=== PATIENT | female | born 1935 | race Caucasian/White ===

== ENCOUNTER 2020-09-24 09:03 | Emergency (ER) | payer MEDICARE, OTHER ==
[~2020-09-24 09:03] MED LIST: COLACE100 MG PO; DESYREL50 MG PO; LACTINEX1 EACH PO; MUCINEX600 MG PO; MULTIVITAMINS1 EAC1 PO; NORVASC5 MG PO; OS-CAL500 MG PO; TESSALON PERLE100 MG PO; ULTRAM50 MG PO
[2020-09-24 10:05] LABS: BASOPHIL 0.3 % (0-2); EOSINOPHIL 0.2 % (0-7); HCT 39.9 % (37.0-47.0); HGB 13.5 g/dl (12.5-16.0); LYMPHOCYTE 15.4 % (15-48); MCH 30.6 pg (25.0-31.0); MCHC 33.8 g/dL (32.0-36.0); MCV 90.5 fL (78.0-100.0); MONOCYTE 7.2 % (0-12); MPV 9.5 fL (6.0-9.5); NEUTROPHIL 76.6 % (41-80); NRBC 0; PLT 236 K/uL (150-400); RBC 4.41 M/uL (4.20-5.40); RDW 12.5 % (11.5-14.0); WBC 8.9 K/uL (4.0-10.5)
[2020-09-24 10:18] LABS: INR 1.19 (0.9-1.2); PROTHROMBIN TIME 14.3 SECONDS (11.4-13.6); PTT 28.6 SECONDS (22.2-34.7)
[2020-09-24 10:26] LABS: ALBUMIN 3.8 g/dL (3.4-5.0); BILIRUBIN - TOTAL 0.5 mg/dL (0.2-1.0); CREATININE 0.88 mg/dL (0.51-0.95); GLOBULIN (CALCULATION) 2.8 g/dL; POTASSIUM 3.8 mmol/L (3.5-5.1); TOTAL PROTEIN 6.6 g/dL (6.4-8.2)
[2020-09-24 11:09] LABS: BILIRUBIN NEGATIVE (NEGATIVE); BLOOD NEGATIVE Ery/uL (NEGATIVE); CLARITY CLEAR (CLEAR); COLOR YELLOW (YELLOW); GLUCOSE (U) NORMAL (NORMAL); LEUKOCYTES NEGATIVE Leu/uL (NEGATIVE); NITRITE NEGATIVE (NEGATIVE); PROTEIN NEGATIVE (NEGATIVE); SPECIFIC GRAVITY 1.025 (1.001-1.030); UROBILINOGEN 0.2 mg/dL (0.2-1.0)
== END 2020-09-24 15:20 | disposition other institution (70) ==
LOC: FER 09:03
PROVIDERS: Emergency Medicine
DX: I63.9 Cerebral infarction, unspecified (principal); Z88.0 Allergy status to penicillin; Z88.2 Allergy status to sulfonamides; Z88.9 Allergy status to unspecified drugs, medicaments and biological substances; Z79.899 Other long term (current) drug therapy; Z20.822 Contact with and (suspected) exposure to COVID-19
CPT/HCPCS: 36415; 70450; 70551; 71046; 80053; 81003; 82553; 85025; 85610; 85730; 93005; U0002

== ENCOUNTER 2021-09-29 12:36 | Emergency (ER) | payer MEDICARE, OTHER ==
[2021-09-29 14:23] LABS: BASOPHIL 0.5 % (0-2); EOSINOPHIL 0.9 % (0-7); HCT 39.5 % (37.0-47.0); HGB 12.6 g/dl (12.5-16.0); LYMPHOCYTE 24.1 % (15-48); MCH 30.2 pg (25.0-31.0); MCHC 31.9 g/dL (32.0-36.0); MCV 94.7 fL (78.0-100.0); MONOCYTE 9.4 % (0-12); MPV 9.3 fL (6.0-9.5); NEUTROPHIL 64.7 % (41-80); NRBC 0; PLT 321 K/uL (150-400); RBC 4.17 M/uL (4.20-5.40); RDW 12.2 % (11.5-14.0); WBC 7.9 K/uL (4.0-10.5)
[2021-09-29 14:53] LABS: BUN/CREAT RATIO (CALC) 23.8 RATIO; CREATININE 1.01 mg/dL (0.51-0.95); POTASSIUM 3.9 mmol/L (3.5-5.1)
[2021-09-29 15:21] LABS: BILIRUBIN NEGATIVE (NEGATIVE); BLOOD TRACE-INTACT Ery/uL (NEGATIVE); CLARITY CLEAR (CLEAR); COLOR YELLOW (YELLOW); GLUCOSE (U) NORMAL (NORMAL); LEUKOCYTES NEGATIVE Leu/uL (NEGATIVE); NITRITE NEGATIVE (NEGATIVE); PROTEIN NEGATIVE (NEGATIVE); SPECIFIC GRAVITY >=1.030 (1.001-1.030); UROBILINOGEN 0.2 mg/dL (0.2-1.0)
[2021-09-29 15:36] LABS: BACTERIA TRACE
== END 2021-09-29 16:17 | disposition home or self-care (01) ==
LOC: FER 12:36
PROVIDERS: Nurse Practitioner Family
DX: M79.651 Pain in right thigh (principal); I10 Essential (primary) hypertension; Z28.310 Unvaccinated for COVID-19; Z79.82 Long term (current) use of aspirin; Z79.02 Long term (current) use of antithrombotics/antiplatelets; Z79.899 Other long term (current) drug therapy
CPT/HCPCS: 36415; 73502; 80048; 81001; 85025; 87088; 93971